=== PATIENT | male | born 1995 | race Caucasian/White ===

== ENCOUNTER → 2023-06-19 07:10 | Outpatient (CLI) | payer OTHER, SELFPAY ==
[2023-06-19 09:09] LABS: Urine Chlamydia NOT DETECTED; Urine N gonorrhoeae NOT DETECTED
== END ==
PROVIDERS: Visit Provider Nurse Practitioner Family
DX: Z11.3 Encounter for screening for infections with a predominantly sexual mode of transmission (principal); R30.0 Dysuria; Z72.51 High risk heterosexual behavior
CPT/HCPCS: 87070; 87086; 87205; 87491; 87591

== ENCOUNTER → 2023-06-19 07:37 | Outpatient (CLI) | payer OTHER, SELFPAY ==
[2023-06-19 09:42] LABS: Hepatitis B Surface Antigen NEGATIVE s/c (NEGATIVE)
[2023-06-19 09:50] LABS: HIV 1 & 2 Ab/Ag 4th Gen Combo NEGATIVE (NEGATIVE); Hep C Virus Ab w/Reflex Quant NEGATIVE s/c (NEGATIVE)
[2023-06-20 11:41] LABS: HSV 2 IGG AB < 0.91 index (0.00-0.90); HSV1IGG < 0.91 index (0.00-0.90)
== END ==
PROVIDERS: Referring Provider Nurse Practitioner Family; Visit Provider Nurse Practitioner Family
DX: Z11.3 Encounter for screening for infections with a predominantly sexual mode of transmission (principal); Z72.51 High risk heterosexual behavior; R30.0 Dysuria
CPT/HCPCS: 36415; 86592; 86695; 86696; 86803; 87070; 87086; 87205; 87340; 87389; 87491; 87591